=== PATIENT | female | born 1995 | race Caucasian/White ===

== ENCOUNTER 2016-11-30 09:44 | Emergency (ER) | payer BC ==
[2016-11-30 10:53] VITALS: BP 124/67
--- NOTE | 2016-11-30 11:45 | UC ---
Skin Complaint HPI - HPI Summary HPI Summary: pt reports tender lumps in right arm pit. Has had same c/o in the past and treated with antibiotics and "lumps" have resolved. - History of Current Complaint Chief Complaint: [employer]kin Time Seen by Provider: 11/30/16 11:23 Stated Complaint: LUMPS UNDER ARM Hx Obtained From: Patient Hx Last Menstrual Period: 3 weeks ago ?: No Onset/Duration: Gradual Onset, Lasting Days, Still Present Skin Exposure Onset/Duration: Days Ago Onset Severity: Mild Current Severity: Mild Location: Discrete - right axilla Character: Swelling, Pain, Redness, Raised, Painful Aggravating: Touch Alleviating: Nothing Associated Signs & Symptoms: Positive: Tenderness - Allergy/Home Medications Allergies/Adverse Reactions: Allergies Allergy/AdvReac Type Severity Reaction Status Date / Time seasonal Allergy Eyes Uncoded 11/30/16 10:53 Itchy/Swollen/Red/Watery Home Medications: Home Medications O C 1 tab PO DAILY 11/30/16 [History Confirmed 11/30/16] Review of Systems Constitutional: Negative Skin: Other - tender lumps, mild erythema in rightaxilla, puruent head to one ' lump" Eyes: Negative ENT: Negative Respiratory: Negative Cardiovascular: Negative Gastrointestinal: Negative Genitourinary: Negative Motor: Negative Neurovascular: Negative Musculoskeletal: Negative Neurological: Negative Psychological: Negative All Other Systems Reviewed And Are Negative: Yes PMH/Surg Hx/FS Hx/Imm Hx Previously Healthy: Yes - Surgical History Surgical History: None - Family History Known Family History: Positive: Cardiac Disease - Social History Occupation: Student Lives: With Family Alcohol Use: Occasionally Substance Use Type: None Smoking Status (MU): Never Smoked Tobacco Physical Exam Triage Information Reviewed: Yes Appearance: Well-Appearing Vital Signs: Initial Vital Signs Temp 99.2 F 11/30/16 10:47 Pulse 75 11/30/16 10:47 Resp 20 11/30/16 10:47 BP 124/67 11/30/16 10:47 Vital Signs Reviewed: Yes ENT Exam: Normal Neck exam: Normal Respiratory: Positive: No respiratory distress Musculoskeletal Exam: Normal Neurological Exam: Normal Psychological Exam: Normal Skin Exam: Other - tender, moveable, cyst in right axilla, small marble size, multiple, one with closed comedone Course/Dx - Differential Diagnoses - Skin Complaint Differential Diagnoses: Other - folliculitis - Diagnoses Provider Diagnoses: folliculitis Discharge - Discharge Plan Condition: Stable Disposition: HOME Prescriptions: Sulfamethox/Trimethoprim DS* [Bactrim DS 800/160 TAB*] 1 tab PO BID #[id number] tab Patient Education Materials: Folliculitis (ED) Referrals: Luis Villagomez [Medical Doctor] - No Primary Care Phys,NOPCP [Primary Care Provider] -
== END 2016-11-30 11:41 | disposition home or self-care (01) ==
LOC: UCCORT 09:44
DX: L73.9 Follicular disorder, unspecified (principal)
CPT/HCPCS: 99202; G0463